=== PATIENT | male | born 1965 | race Caucasian/White ===

== ENCOUNTER 2020-10-18 11:59 | Inpatient (IN) | payer BC, SELFPAY ==
[2020-10-18] VITALS (9 sets, daily range): BP systolic 152–184; BP diastolic 64–90; PULSE 55–85; RESP 14–20; TEMP 36.5–36.9; O2SAT 95–99
--- NOTE | ~2020-10-18 | US_ITS ---
EXAMINATION: US abdomen limited DATE: 10/19/2020 09:26 INDICATION: Right upper quadrant abdominal pain TECHNIQUE: Multiple grayscale and Doppler ultrasound images of the abdomen were obtained. COMPARISON: CT dated 10/18/2020 FINDINGS: The pancreatic head and body are normal in appearance. The pancreatic tail is not visualized. Echoge edwin mild periportal edema. Liver has otherwise normal echogenicity and contour, with a smooth surface . No liver lesion identified. No intrahepatic biliary duct dilation suspected. Portal venous flow was seen in the hepatopetal, normal direction and has normal Doppler waveform. The gallbladder is not di lated but there is prominent edematous gallbladder wall thickening measuring up to 8-9 mm. Large shad owing gallstone at the neck of the gallbladder with layering hypoechoic sludge in the lumen of the ga llbladder. The common bile duct measures up to 5 mm in diameter which is normal. Sonographic Mello s ign was reported as positive by the reversal print inspector. IMPRESSION: 1. Acute cholecystitis with gallstone at the neck of the gallbladder, prominent gallbladder wall thic kening and positive sonographic Mello's sign. Reviewed, dictated and finalized at location B. IMPRESSION: 1. Acute cholecystitis with gallstone at the neck of the gallbladder, prominent gallbladder wall thickening and positive sonographic Mello's sign.
--- NOTE | ~2020-10-18 | CT_ITS ---
EXAMINATION: CT abdomen pelvis w con DATE: 10/18/2020 12:53 INDICATION: Right upper quadrant abdominal pain. TECHNIQUE: Computed tomography (CT) of the abdomen and pelvis was performed with 100 mL Omnipaque 350 intravenous contrast. Automated exposure control and iterative reconstruction technique were employe d. The dose-length product was 358.84 mGy-cm. COMPARISON: None. FINDINGS: The visualized portions of the lung bases demonstrate mild atelectasis. No pleural effusion . The heart size is normal. No pericardial effusion. There is a small sliding hiatal hernia. The live r is normal. The gallbladder is distended with wall thickening and a gallstone in the gallbladder nec k, consistent with acute cholecystitis. The spleen, pancreas, adrenal glands, and kidneys are normal. The prostate is mildly enlarged. There are no dilated loops of bowel. The appendix is normal. There are no pathologically enlarged lymph nodes. There is no free intraperitoneal fluid. There are chronic bilateral L5 pars defects. There is mild thoracolumbar spondylosis. IMPRESSION: 1. Acute cholecystitis. Reviewed, dictated and finalized at location A. IMPRESSION: 1. Acute cholecystitis.
--- NOTE | 2020-10-18 12:10 | ECG_ITS ---
Measurements Intervals [place] Rate: 56 P: 19 NC: 141 QRS: -9 QRSD: 77 T: 26 QT: 413 QTc: 400 Interpretive Statements SINUS BRADYCARDIA BASELINE WANDER- I, II, III, V1-V3 BORDERLINE ECG Electronically Signed On 10-18-2020 14:15:12 CDT by Ernesto Acosta D.O.
--- NOTE | 2020-10-18 12:11 | ED.ABDPAIN ---
HPI - Abdominal Pain General Chief Complaint: Abdominal Pain Stated Complaint: ABD Pain Time Seen by Provider: 10/18/20 12:00 History of Present Illness HPI narrative: 55 yo male w/ h/o DM, htn, CAD presents to the ED c/o abdominal pain. Intermittent severe burning RUQ pain since last night. Radiates to the right flank and back. No exacerbating or alleviating factors. No associated symptoms. Given 75mcg of fentanyl by EMS. Currently pain free. This is a new problem. Related Data Home Medications Medication Instructions Recorded Confirmed aspirin 81 mg PO DAILY 10/18/20 10/18/20 Allergies Allergy/AdvReac Type Severity Reaction Status Date / Time No Known Allergies Allergy Verified 10/18/20 15:11 Review of Systems Review of Systems: All systems reviewed & are unremarkable except as noted in HPI and below Constitutional: Constitutional: Denies chills and Denies fever(s) Eyes: Eyes: Reports no additional eye complaints ENT: Reports system reviewed and no additional complaints, except as documented Cardiovascular: Cardiovascular: Denies chest pain Respiratory: Respiratory: Denies dyspnea Gastrointestinal: Gastrointestinal: Reports abdominal pain, Denies constipation, Denies diarrhea and Denies vomiting Genitourinary: Genitourinary: Reports no additional male genitourinary complaints Musculoskeletal: Musculoskeletal: Reports no additional musculoskeletal complaints Neurologic: Reports system reviewed and no additional complaints, except as documented [facility] Past Medical History Medical History (Updated 10/20/20 @ 15:31 by Андрей Carcamo MD) CAD (coronary artery disease) Essential hypertension Hyperlipidemia Uncontrolled diabetes mellitus Surgical History Surgical History (Updated 10/20/20 @ 12:31 by Yandel Rose DO) History of coronary artery stent placement x2, 2017or 18 Family History Family History Other Cerebrovascular accident Diabetes mellitus Social History Social History Smoking packs per day: 1 Smoking cigarettes per day: 20.0 Years smoked: 36 Smoking pack-years: 36.00 Smoking status: Current every day smoker Tobacco type: cigarettes Second hand tobacco smoke exposure: No Alcohol intake: current Drinks per week: 1 Substance use: never Gender identity (if verbalized by the patient): Male Sexual Orientation (if Verbalized by the Patient): Straight or Heterosexual Spiritual care concerns: No Exam Const: General: healthy appearing, no acute distress and alert Orientation/consciousness: patient oriented x3 HENMT: Head: normal to inspection Neck: Neck: normal visual inspection Resp: Effort & Inspection: normal respiratory effort Auscultation: clear to auscultation bilaterally, no rales, no rhonchi and no wheezes Cardio: Jugular venous distension: no JVD Rate: regular rate Rhythm: regular rhythm Heart sounds: no murmurs GI: Inspection: non-distended GI Palp: Yes Soft to palpation and Yes Tenderness to palpation present (GI) (RUQ, minimal) Skin: General skin exam: normal color Neuro: General: patient oriented x3, moves all extremities, no focal motor deficits and CN's II-XI intact bilaterally Speech: normal speech Extrem: General: normal to inspection and no edema Psych: Appearance: well kempt Affect: normal affect Course Vital Signs Vital signs: Vital Signs Temperature 36.5 C 10/18/20 12:03 Pulse Rate 74 10/18/20 12:03 Respiratory Rate 17 10/18/20 12:03 Blood Pressure 161/90 H 10/18/20 12:03 Pulse Oximetry 99 10/18/20 12:03 Temperature 36.8 C 10/20/20 14:25 Pulse Rate 61 10/20/20 15:25 Respiratory Rate 16 10/20/20 15:25 Blood Pressure 145/72 H 10/20/20 15:25 Pulse Oximetry 92 10/20/20 15:25 MDM - Abdominal Pain MDM Narrative Medical decision making narrative: CT consi
[2020-10-18 12:27] LABS: Basophils Percent Auto 0.3 % (0.2-1.2); Eosinophils Absolute Auto 0.1 K/mm3 (0-0.3); Eosinophils Percent Auto 0.6 % (0-4.4); Hematocrit 46.9 % (42.0-52.0); Hemoglobin 16.4 g/dL (14.0-18.0); Immature Granulocyte Absolute 0.06 K/mm3 (0.00-0.031); Immature Granulocyte Percent A 0.4 % (0-0.5); Lymphocytes Absolute Auto 2.99 K/mm3 (0.9-3.2); Lymphocytes Percent Auto 19.3 % (18.3-44.2); Mean Corpuscular Hemoglobin 31.8 pg (26-34); Mean Corpuscular Volume 90.9 fl (80-100); Mean Platelet Volume 9.5 fl (7.4-10.4); Monocytes Percent Auto 6.5 % (2.6-8.5); Neutrophils Absolute Auto 11.3 K/mm3 (1.3-6.7); Neutrophils Percent Auto 72.9 % (45.5-73.1); Platelet Count Result 264 k/mm3 (150-375); Red Blood Count 5.16 M/mm3 (4.6-6.20); Red Cell Distribution Width 12.4 % (11.5-14.5); White Blood Count 15.5 K/mm3 (4.5-10.0)
[2020-10-18 12:41] LABS: Alanine Aminotransferase 28 U/L (4-50); Albumin Level 4.1 g/dL (3.5-5.1); Alkaline Phosphatase 92 U/L (38-126); Anion Gap 5 mmol/L (8-16); Aspartate Amino Transferase 24 U/L (17-59); Bilirubin,Total 0.5 mg/dL (0.2-1.3); Blood Urea Nitrogen 12 mg/dL (9-20); Calcium 9.1 mg/dL (8.4-10.2); Carbon Dioxide 27 mmol/L (22-30); Chloride 103 mmol/L (98-107); Estimated CRCL calculation 91 ml/min; Estimated Glomerular Filt Rate > 60; Glucose 268 mg/dL (75-110); Lipase 69 U/L (23-300); Potassium 4.4 mmol/L (3.4-5.0); Sodium 135 mmol/L (137-145)
[2020-10-18 12:50] LABS: Troponin I < 0.012 ng/mL (0.000-0.034)
[2020-10-18] MEDS: fentaNYL CITRATE INJ (*CRX) 100 MCG/2 ML VIAL 50 MCG IV PUSH (13:25)
--- NOTE | 2020-10-18 13:49 | PM.CNGS ---
Assessment and Plan Assessment and plan (1) Cholelithiasis and acute cholecystitis with obstruction: Code(s): K80.01 - Calculus of gallbladder with acute cholecystitis with obstruction Status: Acute Assessment and Plan: continues to have abdominal pain. Agree with admission and IV antibiotics. Hopefully his pain will improve and he can be discharged for outpatient laparoscopic cholecystectomy. If not, we will need to proceed with laparoscopic cholecystectomy this admission. I explained this to him and briefly described the procedure of laparoscopic cholecystectomy. P.r.n. analgesics serial labs and abdominal exams as well as IV fluids will also be part of the management. Thank you for asking me to see him in consultation. (2) Uncontrolled diabetes mellitus: Qualifiers: Diabetes mellitus type: type 2 Glycemic state: with hyperglycemia Qualified Code(s): E11.65 - Type 2 diabetes mellitus with hyperglycemia Code(s): E11.65 - Type 2 diabetes mellitus with hyperglycemia Status: Chronic Assessment and Plan: Hemoglobin A1c running 9.8-10. Review of office visits with primary care physician show patient likes to stop medications on his own. Apparently noncompliant. (3) Essential hypertension: Code(s): I10 - Essential (primary) hypertension Status: Chronic History of Present Illness Consult details Consult date: 10/18/20 Reason for consult: abdominal pain Requesting physician: Андрей Carcamo MD Narrative: The patient is a 55-year-old man who was at work at 1:00 a.m. this morning when he developed severe upper abdominal pain. He did not have any nausea vomiting chills or fever. The pain went around to his back. He was at work at this time. 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 He did not have anything to eat at work before this pain started. He did have some rice, cheese and bread about 7:00 p.m.. He has never had pain like this before. He has never had any problems with gallbladder stones before. He denies any family history of gallbladder disease. He left work early but the pain did not get better. He has a history of diabetes coronary disease and has a coronary stent. He called paramedics and was given 75 mcg of fentanyl before coming to the emergency room. This helped but his pain returned in the emergency room. [place] blood [place] [id number] in the ER. Liver enzymes and troponins were normal in the emergency room. Lipase was normal. His blood sugar was 268. Previous outpatient hemoglobin A1c levels were about 10. He had a CT scan of the abdomen and pelvis done a short time ago. It showed a distended gallbladder with wall thickening and a gallstone in the neck of the gallbladder. This was consistent with acute cholecystitis. He has continued to have right upper quadrant pain. He is admitted now and I am seeing the patient in consultation for acute cholecystitis. Review of Systems Review of Systems: All systems reviewed & are unremarkable except as noted in HPI and below Constitutional: Constitutional: Denies body ache(s), Denies chills, Reports difficulty sleeping, Denies fever(s), Denies night sweats and Reports poor appetite Cardiovascular: Cardiovascular: Denies chest pain, Denies diaphoresis, Denies dyspnea and Denies paroxysmal nocturnal dyspnea Respiratory: Respiratory: Denies chest congestion, Denies cough and Denies dyspnea Gastrointestinal: Gastrointestinal: Reports abdominal pain, Denies nausea and Denies vomiting Integumentary/Breasts: Skin/Breast: Denies lesions and Denies rash PMFSH Past Medical History Medical History Essential hypertension Hyperlipidemia Uncontrolled diabetes mellitus Surgical History Surgical History History of coronary artery stent placement Family History Family History (Reviewed
--- NOTE | 2020-10-18 14:55 | ADMGEN ---
This patient, Francisco Apodaca, was admitted to Medical Room 251-. Patient/family oriented to hospital policies and general routines including ID bracelet, bed and alarms, visiting hours, pain management, procedures, bathroom and other care routines, personal items, smoking policy, room service/diet, and visiting hours. Information on how to activate the Rapid Response Team has been discussed. Patient/Family are encouraged to report perceived risks to care and to ask questions if they do not understand what they are told or what they should do.
[2020-10-18] MEDS: LACTATED RINGERS 1,000 ML 100 ML IV CONT (15:41)
[2020-10-18] MEDS: MORPHINE SULFATE (*CRX) 4 MG/ML INJ IV PUSH ×2 (15:58→23:42)
--- NOTE | 2020-10-18 16:35 | PM.IMHP ---
H&P: HPI History of Present Illness Date/Time: 10/18/20 16:35 Chief Complaint: right upper quadrant pain Narrative: history was obtained directly from the patient and from the patient's son at bedside. 55-year-old gentleman was at work around 2:00 a.m. this morning when he had sudden onset of moderate to severe right upper quadrant pain radiating to the right flank and CVA region. The pain gradually worsened so that he was unable to stay at work and therefore departed early. It persisted and became so severe that he relented and presented to the emergency department. Only IV narcotics ameliorated the pain. His discomfort is currently mild. He denied fevers chills sweats nausea vomiting or diarrhea. He denied similar pain in the past. Denied change in diet or weight. Denied change in bowel or bladder function. Denied bleeding from bowel or bladder. Review of Systems Review of Systems: All systems reviewed & are unremarkable except as noted in HPI and below PMFSH Past Medical History Medical History (Updated 10/18/20 @ 16:36 by Tez Lainez MD) CAD (coronary artery disease) Essential hypertension Hyperlipidemia Uncontrolled diabetes mellitus Surgical History Surgical History History of coronary artery stent placement Family History Family History Other Cerebrovascular accident Diabetes mellitus Social History Social History Smoking packs per day: 1 Smoking cigarettes per day: 20.0 Years smoked: 36 Smoking pack-years: 36.00 Smoking status: Current every day smoker Tobacco type: cigarettes Second hand tobacco smoke exposure: No Alcohol intake: current Drinks per week: 1 Substance use: never Gender identity (if verbalized by the patient): Male Sexual Orientation (if Verbalized by the Patient): Straight or Heterosexual Spiritual care concerns: No Meds Home Medications and Allergies Home Medications Medication Instructions Recorded Confirmed Type rosuvastatin 40 mg tablet 40 mg PO DAILY #30 tablet 07/21/20 10/18/20 Rx lisinopril 5 mg tablet 5 mg PO DAILY #90 tablet 08/31/20 10/18/20 Rx metoprolol tartrate 25 mg tablet 25 mg PO BID #60 tablet 09/27/20 10/18/20 Rx aspirin 81 mg PO DAILY 10/18/20 10/18/20 History Allergies Allergy/AdvReac Type Severity Reaction Status Date / Time No Known Allergies Allergy Verified 10/18/20 15:11 Vital Signs Vital Signs - 24 hr 10/18/20 12:03 10/18/20 13:27 10/18/20 13:46 Temperature 97.7 F Pulse Rate 74 60 60 Respiratory Rate 17 20 20 Blood Pressure 161/90 H 171/89 H 171/89 H Pulse Oximetry 99 97 97 10/18/20 14:42 10/18/20 15:43 Temperature 98.5 F Pulse Rate 55 L 56 L Respiratory Rate 20 16 Blood Pressure 184/86 H 164/71 H Pulse Oximetry 95 97 Exam Narrative: Exam Narrative: HEENT: PERRL, sclerae nonicteric, pharyngeal mucosa pink and intact NECK: No JVD, adenopathy, thyromegaly, or bruits CHEST: Clear to auscultation. Normal effort. HEART: NL S1/S2, regular, no murmur ABDOMEN: BS+, soft, TENDER RUQ WITH GUARDING BUT NO REBOUND, no mass, no bruits EXTREMITIES: No cyanosis, edema, or clubbing NEUROLOGIC: CN intact and symmetric to inspection. MUSCULOSKELETAL: Tone and strength symmetric. PSYCH: Alert. Oriented to person, place, and time. H&P: Results Labs Labs: Short CBC 10/18/20 Range/Units 12:21 WBC 15.5 H (4.5-10.0) K/mm3 Hgb 16.4 (14.0-18.0) g/dL Hct 46.9 (42.0-52.0) % Plt Count 264 (150-375) k/mm3 [facility] 10/18/20 12:21 Sodium 135 L Potassium 4.4 Chloride 103 Carbon Dioxide 27 BUN 12 Creatinine 0.70 Glucose 268 H Calcium 9.1 Cardiac Enzymes 10/18/20 Range/Units 12:21 Troponin I < 0.012 (0.000-0.034) ng/mL Liver Function 10/18/20 Range/Units 12:21 Total Bilirubin
[2020-10-18] MEDS: METOPROLOL TARTRATE INJ 5 MG/5 ML VIAL 2.5 MG IV PUSH ×2 (18:00→23:43)
[2020-10-18] MEDS: INSULIN ASPART (*BKC) 100 UNITS/ML SUB-Q ×2 (18:14→23:46)
[2020-10-18 18:40] LABS: Glucose Point of Care 218 (65-105)
[2020-10-18] MEDS: INSULIN GLARGINE (*BKC) 100 UNITS/ML 7 UNITS SUB-Q (20:33)
[2020-10-18 20:52] LABS: Glucose Point of Care 226 (65-105)
[2020-10-18 23:51] LABS: Glucose Point of Care 217 (65-105)
[2020-10-19] MEDS: LACTATED RINGERS 1,000 ML 100 ML IV CONT ×3 (02:42→23:51)
[2020-10-19 05:41] VITALS: BP 142/68; PULSE 76; RESP 16; TEMP 37.2; O2SAT 95
[2020-10-19 06:14] VITALS: PULSE 84
[2020-10-19] MEDS: METOPROLOL TARTRATE INJ 5 MG/5 ML VIAL 2.5 MG IV PUSH (06:14)
[2020-10-19 07:48] LABS: Hematocrit 44.7 % (42.0-52.0); Hemoglobin 15.9 g/dL (14.0-18.0); Mean Corpuscular HGB Conc 35.6 g/dl (32-36); Mean Corpuscular Hemoglobin 31.6 pg (26-34); Mean Corpuscular Volume 88.9 fl (80-100); Mean Platelet Volume 9.7 fl (7.4-10.4); Platelet Count Result 282 k/mm3 (150-375); Red Blood Count 5.03 M/mm3 (4.6-6.20); Red Cell Distribution Width 12.4 % (11.5-14.5)
[2020-10-19 08:01] LABS: Magnesium 1.6 mg/dL (1.6-2.3)
[2020-10-19 08:06] LABS: Anion Gap 6 mmol/L (8-16); Blood Urea Nitrogen 9 mg/dL (9-20); Calcium 8.9 mg/dL (8.4-10.2); Carbon Dioxide 27 mmol/L (22-30); Chloride 102 mmol/L (98-107); Estimated CRCL calculation 96 ml/min; Estimated Glomerular Filt Rate > 60; Glucose 220 mg/dL (75-110); Potassium 3.9 mmol/L (3.4-5.0); Sodium 135 mmol/L (137-145)
[2020-10-19 08:10] LABS: Glucose Point of Care 196 (65-105)
--- NOTE | 2020-10-19 08:14 | WPDANESEPPF ---
Anes - Initial Pre Proc Eval Procedure: Operation Date: 10/20/20 13:30 Proposed Procedures p Laparoscopic Cholecystectomy - Sumit Ashraf MD Date/Time: 10/19/20 08:14 Surgeon: Kiana Valero PA-C Pre Op Diagnosis: Acute Cholecystitis Patient Data Age: 55 Gender: M Height: 1.78 m Weight: 68 kg Last Vital Signs Temp 37.2 C 10/19/20 05:41 Pulse 84 10/19/20 06:14 Resp 16 10/19/20 05:41 BP 142/68 H 10/19/20 05:41 Pulse Ox 95 10/19/20 05:41 Allergies Allergy/AdvReac Type Severity Reaction Status Date / Time No Known Allergies Allergy Verified 10/18/20 15:11 Home Medications Medication Instructions Recorded Confirmed Type rosuvastatin 40 mg tablet 40 mg PO DAILY #30 tablet 07/21/20 10/18/20 Rx lisinopril 5 mg tablet 5 mg PO DAILY #90 tablet 08/31/20 10/18/20 Rx metoprolol tartrate 25 mg tablet 25 mg PO BID #60 tablet 09/27/20 10/18/20 Rx aspirin 81 mg PO DAILY 10/18/20 10/18/20 History Laboratory Tests 10/18/20 10/18/20 10/18/20 12:21 12:21 17:57 WBC 15.5 K/mm3 H K/mm3 (4.5-10.0) RBC 5.16 M/mm3 M/mm3 (4.6-6.20) Hgb 16.4 g/dL g/dL (14.0-18.0) Hct 46.9 % % (42.0-52.0) MCV 90.9 fl fl (80-100) MCH 31.8 pg pg (26-34) MCHC 35.0 g/dl g/dl (32-36) RDW 12.4 % % (11.5-14.5) Plt Count 264 k/mm3 k/mm3 (150-375) MPV 9.5 fl fl (7.4-10.4) Immature Gran % (Auto) 0.4 % % (0-0.5) Neut % (Auto) 72.9 % % (45.5-73.1) Lymph % (Auto) 19.3 % % (18.3-44.2) [place] % (Auto) 6.5 % % (2.6-8.5) Eos % (Auto) 0.6 % % (0-4.4) Baso % (Auto) 0.3 % % (0.2-1.2) Lymph # (Auto) 2.99 K/mm3 K/mm3 (0.9-3.2) [place] # (Auto) 1.0 K/mm3 H K/mm3 (0.1-0.6) Eos # (Auto) 0.1 K/mm3 K/mm3 (0-0.3) Baso # (Auto) 0.0 K/mm3 K/mm3 (0.0-0.1) Abs Immat Gran (auto) 0.06 K/mm3 H K/mm3 (0.00-0.031) Absolute Neuts (auto) 11.3 K/mm3 H K/mm3 (1.3-6.7) Absolute Nucleated RBC 0.0 K/mm3 K/mm3 (0.0-0.012) Nucleated RBC % 0.0 % % (0.0-0.2) Sodium 135 mmol/L L mmol/L (137-145) Potassium 4.4 mmol/L mmol/L (3.4-5.0) Chloride 103 mmol/L mmol/L (98-107) Carbon Dioxide 27 mmol/L mmol/L (22-30) Anion Gap 5 mmol/L L mmol/L (8-16) BUN 12 mg/dL mg/dL (9-20) Creatinine 0.70 mg/dL mg/dL (0.7-1.3) Estim Creat Clear Calc 91 ml/min ml/min Estimated GFR > 60 (59 - ) Glucose 268 mg/dL H mg/dL (75-110) POC Capillary Glucose 218 mg/dl H mg/dl (65-105) Hemoglobin A1c Calcium 9.1 mg/dL mg/dL (8.4-10.2) Magnesium Total Bilirubin 0.5 mg/dL mg/dL (0.2-1.3) AST 24 U/L U/L (17-59) ALT 28 U/L U/L (4-50) Alkaline Phosphatase 92 U/L U/L (38-126) Troponin I < 0.012 ng/mL ng/mL (0.000-0.034) Total Protein 7.0 g/dL g/dL (6.3-8.2) Albumin 4.1 g/dL g/dL (3.5-5.1) Lipase 69 U/L U/L (23-300) 10/18/20 10/18/20 10/19/20 20:30 23:45 06:09 WBC RBC Hgb Hct MCV MCH MCHC RDW Plt Count MPV Immature Gran % (Auto) Neut % (Auto) Lymph % (Auto) [place] % (Auto) Eos % (Auto) Baso % (Auto) Lymph # (Auto) [place] # (Auto) Eos # (Auto) Baso # (Auto) Abs Immat Gran (auto) Absolute Neuts (auto) Absolute Nucleated RBC Nucleated RBC % Sodium Potassium Chloride Carbon Dioxide Anion Gap BUN Creati
[2020-10-19 08:17] LABS: Hemoglobin A1C 9.9 % (<5.7)
--- NOTE | 2020-10-19 08:23 | PM.PNGS ---
Progress Note: A&P Assessment and Plan (1) Cholelithiasis and acute cholecystitis with obstruction: Code(s): K80.01 - Calculus of gallbladder with acute cholecystitis with obstruction Status: Acute Assessment and Plan: patient somewhat improved after IV antibiotics and analgesics but still very tender right upper quadrant with pain. I am going to get an ultrasound of the right upper quadrant today. We will continue current treatment. If not demonstrably better tomorrow, we will proceed with laparoscopic cholecystectomy tomorrow afternoon. I discussed the procedure of laparoscopic cholecystectomy with the patient again this morning. The procedure the risks the benefits have been discussed. He is agreeable to proceeding as planned above. (2) Uncontrolled diabetes mellitus: Qualifiers: Diabetes mellitus type: type 2 Glycemic state: with hyperglycemia Qualified Code(s): E11.65 - Type 2 diabetes mellitus with hyperglycemia Code(s): E11.65 - Type 2 diabetes mellitus with hyperglycemia Status: Chronic (3) Essential hypertension: Code(s): I10 - Essential (primary) hypertension Status: Chronic (4) CAD (coronary artery disease): Code(s): I25.10 - Atherosclerotic heart disease of [place] coronary artery without angina pectoris Status: Chronic Subjective Subjective Date/Time Seen: 10/19/20 08:23 Patient reports: feels better, pain is less ( But still having intermittent severe right upper quadrant pain) and afebrile Review of Systems Review of Systems: All systems reviewed & are unremarkable except as noted in HPI and below Constitutional: Constitutional: Denies headache(s) Cardiovascular: Cardiovascular: Denies chest pain and Denies dyspnea Respiratory: Respiratory: Denies cough and Denies dyspnea Gastrointestinal: Gastrointestinal: Reports as per HPI Neurologic: Denies confusion and Denies headache(s) Exam Const: General: comfortable and no acute distress; No confusion Orientation/consciousness: patient oriented x3 and No confusion GI: Inspection: normal to inspection and non-distended GI Palp: Yes Soft to palpation, Yes Tenderness to palpation present (GI) ( still very tender right upper quadrant), No Guarding due to palpation present (GI), No Palpable mass present and No Rebound tenderness present Auscultation: Hypoactive bowel sounds present Neuro: General: patient oriented x3, no focal motor deficits and No confusion Extrem: General: no calf tenderness and no edema Psych: Affect: normal affect Insight: Good insight present (Psych) Judgement: Good judgement present (Psych) Objective Data Vital Signs Vital Signs: Vital Signs - 24 hr 10/18/20 12:03 10/18/20 13:27 10/18/20 13:46 Temperature 36.5 C Pulse Rate 74 60 60 Respiratory Rate 17 20 20 Blood Pressure 161/90 H 171/89 H 171/89 H Pulse Oximetry 99 97 97 10/18/20 14:42 10/18/20 15:43 10/18/20 18:00 Temperature 36.9 C Pulse Rate 55 L 56 L 56 L Respiratory Rate 20 16 Blood Pressure 184/86 H 164/71 H Pulse Oximetry 95 97 10/18/20 20:00 10/18/20 20:46 10/18/20 23:43 Temperature 36.9 C Pulse Rate 58 L 58 L 85 Respiratory Rate 14 14 Blood Pressure 152/64 H Pulse Oximetry 97 97 10/19/20 05:41 10/19/20 06:14 Temperature 37.2 C Pulse Rate 76 84 Respiratory Rate 16 Blood Pressure 142/68 H Pulse Oximetry 95 Intake/Output Intake/Output: Intake & Output 10/16/20 10/17/20 10/18/20 10/19/20 22:59 22:59 23:59 23:59 Intake Total 1100 Balance 1100 Meds/Results Medications: Active Medications Generic Name Dose Route Start Last Admin Trade Name Freq PRN Reason Stop Dose Admin Dextrose 12.5 gm 10/18/20 17:08 Dextrose 50% 25 Gm/50 Ml Syringe IV PUSH PRN PRN Hypoglycemia Protocol Glucagon 1 mg 10/18/20 17:08 Glucagon For Inj 1 Mg Vial IM PRN PRN Hypoglycemia Protocol Piperacillin/Tazobactam/D
[2020-10-19 09:14] VITALS: PULSE 64; RESP 16; O2SAT 94
[2020-10-19] MEDS: CHLORHEXIDINE GLUCONATE 4% SOL 120 ML BTL 1 APPLIC TOPICAL (10:22)
--- NOTE | 2020-10-19 10:31 | PM.IMPN ---
Progress Note: A&P Assessment and Plan (1) Cholelithiasis and acute cholecystitis with obstruction: Code(s): K80.01 - Calculus of gallbladder with acute cholecystitis with obstruction Status: Acute Assessment and Plan: He presented with severe RUQ pain for <[address] abd/pelvis findings consistent with acute cholecystitis. Abdominal US demonstrates edematous gallbladder with wall thickening measuring up to 8-9 mm and large shadowing gallstone at the neck of the gallbladder with sludge. Lipase normal and LFTs normal on admission. WBC has increased to 20,000. He is afebrile. Pain is much better today. 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 He is medically stable for laparoscopic cholecystectomy under general anesthesia. ASA held in anticipation of surgery. Resume post-op. Continue metoprolol, lisinopril and rosuvastatin (3) Uncontrolled diabetes mellitus: Qualifiers: Diabetes mellitus type: type 2 Glycemic state: with hyperglycemia Qualified Code(s): E11.65 - Type 2 diabetes mellitus with hyperglycemia Code(s): E11.65 - Type 2 diabetes mellitus with hyperglycemia Status: Chronic Assessment and Plan: Hemoglobin A1c 9.9 10/19/20. Most recent blood sugar 196. Patient is not compliant with medication and perhaps with diet. He was supposed to be taking metformin but he is not taking this. Low-dose basal lantus initiated while inpatient Continue ACHS glucose monitoring, sliding scale insulin, and hypoglycemia protocol He needs to resume metformin at discharge and follow-up with his PCP Education provided regarding risks of uncontrolled diabetes (4) Essential hypertension: Code(s): I10 - Essential (primary) hypertension Status: Chronic Assessment and Plan: Blood pressure is elevated, likely due to pain. Most recent BP 142/68. Continue metoprolol and lisinopril Monitor BP and adjust treatment as necessary (5) Corns and callus: Code(s): L84 - Corns and callosities Status: Acute Assessment and Plan: He has painful corn on right heel and bilateral calluses. Podiatry consulted with input appreciated Subjective Date/time seen: 10/19/20 10:31 Mr. Apodaca is a 55 y.o. male with PMH significant for hypertension, CAD, hyperlipidemia, and uncontrolled diabetes mellitus due to non-compliance with recommended regimen who is seen in follow-up for acute cholecystitis. He is doing better today. His pain has improved and he states that it is currently 2-3/10 at the RUQ. He denies radiation. He is lying in bed comfortably. He has no subjective fever or chills. He has no chest pain, shortness of breath, or cough. He is not having any nausea or vomiting. He endorses discomfort at his right heel due to calluses for 2-3 months. He is still able to walk/bear weight with the foot. He denies warmth or erythema. Review of Systems Review of Systems: All systems reviewed & are unremarkable except as noted in HPI and below Exam Narrative: Exam Narrative: General: Very pleasant, well-developed, and well-nourished 55 y.o. male lying semi-recumbent in bed in no acute distress. HEENMT: Normocephalic and atraumatic. Sclera anicteric. EOMI. Oral mucosa tacky. Neck: Supple. Cardiac: Regular rate and rhythm. S1 and S2 normal. Lungs: Lungs are clear to ausc
[2020-10-19 12:00] LABS: Glucose Point of Care 212 (65-105)
[2020-10-19] MEDS: lisinopriL 5 MG TABLET PO (12:18)
[2020-10-19] MEDS: INSULIN ASPART (*BKC) 100 UNITS/ML SUB-Q (12:21)
--- NOTE | 2020-10-19 12:47 | WPDCN ---
Assessment and Plan Additional Plan 1. Verruca Plantaris to the inferior right heel - I will treat the patient as an outpatient for this papillomatous lesion. He has no bacterial signs of infection. 2. Diabetic without peripheral neuropathy/angiopathy- I will monitor the patient as an outpatient for routine diabetic foot care. HPI Data of Consult Date/Time: 10/19/20 12:47 Requesting Physician: Kiana Valero PA-C Primary Care Provider: Sreedhar Garcia MD Consult Narrative Narrative: Francisco Apodaca is a 55 year old male complaining of a painful skin lesion to the bottom of the right heel. It became symptomatic 3 months ago. 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 The patient is diabetic denies a history of diabetic ulcers, unsure if his diabetes is well controlled. Review of Systems Review of Systems: All systems reviewed & are unremarkable except as noted in HPI and below Gastrointestinal: Gastrointestinal: Reports abdominal pain Musculoskeletal: Comments: Pain to the right heel plantarly. [facility] Past Medical History Medical History (Updated 10/19/20 @ 11:00 by Kiana Valero PA-C) CAD (coronary artery disease) Essential hypertension Hyperlipidemia Uncontrolled diabetes mellitus Surgical History Surgical History History of coronary artery stent placement Family History Family History Other Cerebrovascular accident Diabetes mellitus Social History Social History Smoking packs per day: 1 Smoking cigarettes per day: 20.0 Years smoked: 36 Smoking pack-years: 36.00 Smoking status: Current every day smoker Tobacco type: cigarettes Second hand tobacco smoke exposure: No Alcohol intake: current Drinks per week: 1 Substance use: never Gender identity (if verbalized by the patient): Male Sexual Orientation (if Verbalized by the Patient): Straight or Heterosexual Spiritual care concerns: No Meds Home Medications and Allergies Home Medications Medication Instructions Recorded Confirmed Type rosuvastatin 40 mg tablet 40 mg PO DAILY #30 tablet 07/21/20 10/18/20 Rx lisinopril 5 mg tablet 5 mg PO DAILY #90 tablet 08/31/20 10/18/20 Rx metoprolol tartrate 25 mg tablet 25 mg PO BID #60 tablet 09/27/20 10/18/20 Rx aspirin 81 mg PO DAILY 10/18/20 10/18/20 History Allergies Allergy/AdvReac Type Severity Reaction Status Date / Time No Known Allergies Allergy Verified 10/18/20 15:11 Vital Signs Vital Signs - 24 hr 10/18/20 13:27 10/18/20 13:46 10/18/20 14:42 Temperature Pulse Rate 60 60 55 L Respiratory Rate 20 20 20 Blood Pressure 171/89 H 171/89 H 184/86 H Pulse Oximetry 97 97 95 10/18/20 15:43 10/18/20 18:00 10/18/20 20:00 Temperature 36.9 C Pulse Rate 56 L 56 L 58 L Respiratory Rate 16 14 Blood Pressure 164/71 H Pulse Oximetry 97 97 10/18/20 20:46 10/18/20 23:43 10/19/20 05:41 Temperature 36.9 C 37.2 C Pulse Rate 58 L 85 76 Respiratory Rate 14 16 Blood Pressure 152/64 H 142/68 H Pulse Oximetry 97 95 10/19/20 06:14 10/19/20 09:14 Temperature Pulse Rate 84 64 Respiratory Rate 16 Blood Pressure Pulse Oximetry 94 Exam Extrem: Ankle/foot/toe images: 1. Painful hyperkeratotic lesion present to the inferior calcaneus right footwith loss of skin lines and pain with deep palpation. No discontinuity of the skin present. No bacterial signs of infection. Other: Palpable pedal pulses bilaterally. Sensation is intact to digits 1-5 bilaterally per [facility] Diamante Monofilament. Results Labs CBC & Chem 7: 10/19/20 07:31 10/19/20 07:31 Labs: Short CBC 10/19/20 Range/Units 07:31 WBC 20.0 H (4.5-10.0) K/mm3 Hgb 15.9 (14.0-18.0) g/dL Hct 44.7 (42.0-52.0) % Pl
[2020-10-19 14:00] VITALS: BP 144/67; PULSE 85; RESP 16; TEMP 37.6; O2SAT 94
[2020-10-19 18:04] LABS: Glucose Point of Care 181 (65-105)
[2020-10-19 20:17] VITALS: PULSE 97
[2020-10-19] MEDS: INSULIN GLARGINE (*BKC) 100 UNITS/ML 7 UNITS SUB-Q (20:17)
[2020-10-19] MEDS: METOPROLOL TARTRATE 25 MG TABLET PO (20:17)
[2020-10-19] MEDS: ENOXAPARIN 40 MG/0.4 ML SYRINGE SUB-Q (20:18)
[2020-10-19 21:08] LABS: Glucose Point of Care 212 (65-105)
[2020-10-19 22:00] VITALS: BP 140/60; PULSE 97; RESP 18; TEMP 36.7; O2SAT 96
[2020-10-20] VITALS (12 sets, daily range): BP systolic 115–153; BP diastolic 61–72; PULSE 54–70; RESP 14–20; TEMP 36.3–37.2; O2SAT 92–99
[2020-10-20 00:01] LABS: Glucose Point of Care 186 (65-105)
[2020-10-20 05:36] LABS: Hematocrit 43.6 % (42.0-52.0); Hemoglobin 15.2 g/dL (14.0-18.0); Mean Corpuscular HGB Conc 34.9 g/dl (32-36); Mean Corpuscular Hemoglobin 31.5 pg (26-34); Mean Corpuscular Volume 90.5 fl (80-100); Mean Platelet Volume 9.7 fl (7.4-10.4); Platelet Count Result 240 k/mm3 (150-375); Red Blood Count 4.82 M/mm3 (4.6-6.20); Red Cell Distribution Width 12.6 % (11.5-14.5); White Blood Count 17.7 K/mm3 (4.5-10.0)
[2020-10-20 05:43] LABS: Glucose Point of Care 163 (65-105)
[2020-10-20 05:49] LABS: Alanine Aminotransferase 17 U/L (4-50); Albumin Level 3.8 g/dL (3.5-5.1); Alkaline Phosphatase 67 U/L (38-126); Anion Gap 6 mmol/L (8-16); Aspartate Amino Transferase 16 U/L (17-59); Bilirubin,Total 0.8 mg/dL (0.2-1.3); Blood Urea Nitrogen 10 mg/dL (9-20); Calcium 8.7 mg/dL (8.4-10.2); Carbon Dioxide 27 mmol/L (22-30); Chloride 102 mmol/L (98-107); Estimated CRCL calculation 96 ml/min; Estimated Glomerular Filt Rate > 60; Glucose 165 mg/dL (75-110); Lipase 48 U/L (23-300); Potassium 3.7 mmol/L (3.4-5.0); Sodium 135 mmol/L (137-145)
[2020-10-20] MEDS: METOPROLOL TARTRATE 25 MG TABLET PO ×2 (08:00→21:09)
[2020-10-20] MEDS: lisinopriL 5 MG TABLET PO (08:00)
[2020-10-20] MEDS: CHLORHEXIDINE GLUCONATE 4% SOL 120 ML BTL 1 APPLIC TOPICAL (08:57)
--- NOTE | 2020-10-20 09:25 | PM.PNGS ---
Progress Note: A&P Assessment and Plan (1) Cholelithiasis and acute cholecystitis with obstruction: Code(s): K80.01 - Calculus of gallbladder with acute cholecystitis with obstruction Status: Acute Assessment and Plan: Even though pain is better, patient still very tender over GB with guarding and WBC continues to rise. U/S c/w acute cholecystitis as well. Will proceed with lap kareen today. The procedure was discussed in detail including potential risks and benefits. The possibility of conversion to open surgery, bleeding, infection, bile leak, additional procedures, and return to surgery was discussed. All questions were answered. The patient agrees to go ahead. (2) Uncontrolled diabetes mellitus: Qualifiers: Diabetes mellitus type: type 2 Glycemic state: with hyperglycemia Qualified Code(s): E11.65 - Type 2 diabetes mellitus with hyperglycemia Code(s): E11.65 - Type 2 diabetes mellitus with hyperglycemia Status: Chronic (3) Essential hypertension: Code(s): I10 - Essential (primary) hypertension Status: Chronic (4) CAD (coronary artery disease): Code(s): I25.10 - Atherosclerotic heart disease of [place] coronary artery without angina pectoris Status: Chronic Subjective Subjective Date/Time Seen: 10/20/20 09:25 Patient reports: feels better, pain is less and afebrile Review of Systems Review of Systems: All systems reviewed & are unremarkable except as noted in HPI and below Constitutional: Constitutional: Denies headache(s) Cardiovascular: Cardiovascular: Denies chest pain and Denies dyspnea Respiratory: Respiratory: Denies cough and Denies dyspnea Gastrointestinal: Gastrointestinal: Reports as per HPI, Reports abdominal pain, Reports bloating and Reports early satiety Neurologic: Denies confusion and Denies headache(s) Exam Const: General: comfortable and no acute distress; No confusion Orientation/consciousness: patient oriented x3 and No confusion GI: Inspection: normal to inspection and non-distended GI Palp: Yes Soft to palpation, Yes Tenderness to palpation present (GI) (still very tender RUQ), Yes Guarding due to palpation present (GI) and No Rebound tenderness present Auscultation: normal bowel sounds Neuro: General: patient oriented x3, no focal motor deficits and No confusion Extrem: General: no calf tenderness and no edema Psych: Affect: normal affect Insight: Good insight present (Psych) Judgement: Good judgement present (Psych) Objective Data Vital Signs Vital Signs: Vital Signs - 24 hr 10/19/20 14:00 10/19/20 20:17 10/19/20 22:00 Temperature 37.6 C H 36.7 C Pulse Rate 85 97 97 Respiratory Rate 16 18 Blood Pressure 144/67 H 140/60 Pulse Oximetry 94 96 10/20/20 06:00 10/20/20 08:00 Temperature 36.6 C Pulse Rate 70 69 Respiratory Rate 20 Blood Pressure 126/61 Pulse Oximetry 98 Intake/Output Intake/Output: Intake & Output 10/17/20 10/18/20 10/19/20 10/20/20 22:59 23:59 23:59 23:59 Intake Total 3250 529 Balance 3250 529 Meds/Results Medications: Active Medications Generic Name Dose Route Start Last Admin Trade Name Freq PRN Reason Stop Dose Admin Dextrose 12.5 gm 10/18/20 17:08 Dextrose 50% 25 Gm/50 Ml Syringe IV PUSH PRN PRN Hypoglycemia Protocol Enoxaparin Sodium 40 mg 10/19/20 21:00 10/19/20 20:18 Enoxaparin 40 Mg/0.4 Ml Syringe SUB-Q 40 mg HS ARCELIA Administration Glucagon 1 mg 10/18/20 17:08 Glucagon For Inj 1 Mg Vial IM PRN PRN Hypoglycemia Protocol Piperacillin/Tazobactam/Dextrose 3.375 gm in 50 mls @ 100 mls/hr 10/18/20 19:00 10/20/20 05:59 Zosyn 3.375 Gm/D5w 50ml Pm IVPB Infused Q6HR ARCELIA Infusion Lactated Ringer's 1,000 mls @ 100 mls/hr 10/18/20 13:35 10/20/20 05:32 Lr - Lactated Ringers Iv IV CONT 100 mls/hr .Q10H ARCELIA Infusion Dextrose 1,000 mls @ 100 mls/hr 10/18/20 17:08 Dextrose 5% 1,0
--- NOTE | 2020-10-20 10:39 | PM.IMPN ---
Progress Note: A&P Assessment and Plan (1) Cholelithiasis and acute cholecystitis with obstruction: Code(s): K80.01 - Calculus of gallbladder with acute cholecystitis with obstruction Status: Acute Assessment and Plan: He presented with severe RUQ pain and CT abd/pelvis findings consistent with acute cholecystitis. Abdominal US demonstrates edematous gallbladder with wall thickening measuring up to 8-9 mm and large shadowing gallstone at the neck of the gallbladder with sludge. Lipase normal and LFTs normal on admission. He is afebrile. Leukocytosis slowly improving. Pain improved today but still having RUQ tenderness. General surgery is following and input is appreciated. Planning for laparoscopically cholecystectomy today with Dr. Ashraf. Continue IV Zosyn (initiated 10/18) Supportive care with analgesics and antiemetics as needed NPO diet for surgery. Advance diet per general surgery post-operatively Continue IV fluids - LR at 100 ml/hr (2) CAD (coronary artery disease): Code(s): I25.10 - Atherosclerotic heart disease of [place] coronary artery without angina pectoris Status: Chronic Assessment and Plan: The patient is able to climb ladders and stair cases and utilizes power tools at his employment without symptoms of chest pain or dyspnea, demonstrating >6 METS. He is medically stable for laparoscopic cholecystectomy under general anesthesia. ASA held in anticipation of surgery. Resume post-operatively. Continue metoprolol, lisinopril and rosuvastatin (3) Uncontrolled diabetes mellitus: Qualifiers: Diabetes mellitus type: type 2 Glycemic state: with hyperglycemia Qualified Code(s): E11.65 - Type 2 diabetes mellitus with hyperglycemia Code(s): E11.65 - Type 2 diabetes mellitus with hyperglycemia Status: Chronic Assessment and Plan: Hemoglobin A1c 9.9 10/19/20. Most recent blood sugar 163. Patient is not compliant with medication and perhaps with diet. He was supposed to be taking metformin but he is not taking this. Low-dose basal lantus initiated while inpatient Continue ACHS glucose monitoring, sliding scale insulin, and hypoglycemia protocol He needs to resume metformin at discharge and follow-up with his PCP Education provided regarding risks of uncontrolled diabetes (4) Essential hypertension: Code(s): I10 - Essential (primary) hypertension Status: Chronic Assessment and Plan: Blood pressureelevated initially, likely due to pain. Most recent BP 140/60. Continue metoprolol and lisinopril Monitor BP and adjust treatment as necessary (5) Corns and callus: Code(s): L84 - Corns and callosities Status: Acute Assessment and Plan: He has painful corn on right heel and bilateral calluses. He was seen by national business director Dr. Jones who felt this was a papillomatous lesion and he will follow him as an outpatient for treatment. Refer to podiatry upon discharge May benefit from post-op shoe prior to discharge for comfort. Subjective Date/time seen: 10/20/20 10:39 Interval history: Date of service: 10/20/2020 Francisco Apodaca is a 55 y.o. male with PMH significant for hypertension, CAD, hyperlipidemia, and uncontrolled diabetes mellitus due to non-compliance with recommended regimen who is seen in follow-up for acute cholecystitis. Is feeling pretty well today. He is only endorsing mild discomfort in the right upper quadrant and he rates his pain as 1/10. He denies nausea or vomiting. He has been NPO today and has not eaten anything. No shortness of breath or chest pain. No headache or body aches. He has no additional concerns. He is comfortable with proceeding with surgery today. He complains of pain in his right heel and reports difficulty weight bearing. He has been walking on the sides of his feet to avoid direct pressure. Please note: patient is a non-bel[place]ski Micronesian speaker but declined use of interpr
[2020-10-20 11:49] LABS: Glucose Point of Care 183 (65-105)
--- NOTE | 2020-10-20 11:57 | PC.NURSE ---
To OR per doriser, IV 18 RAC. Report given to Suzette MCINTYRE.
[2020-10-20] MEDS: LACTATED RINGERS 1,000 ML 30 ML IV CONT (12:00)
--- NOTE | 2020-10-20 12:35 | WPDHPUPDATE1 ---
History and Physical Update Update Date/Time: 10/20/20 12:35 History and Physical has been reviewed, including an updated exam of the patient. There are NO changes in the patient's condition. Risks, benefits, and alternatives have been discussed and questions answered. Patient agrees to proceed with procedure.
[2020-10-20] MEDS: BUPIVACAINE/EPINEPHRINE 0.5% 30 ML VIAL INFILTRATE (13:08)
--- NOTE | 2020-10-20 14:29 | PM.PROC ---
Procedure Note - Detailed Date of procedure: 10/20/20 Pre-op diagnosis: Acute Cholecystitis Cholelithiasis with acute cholecystitis and cystic duct obstruction (hydrops) Post-op diagnosis: same Procedure performed: Laparoscopic cholecystectomy Description of procedure: The patient was taken to surgery and induced into general anesthesia. The abdomen was prepped and draped. Trocars were placed in the usual fashion using 0.5% Marcaine with epinephrine and applied Medical optical trocars. 5 mm camera was used. The gallbladder was severely inflamed. It was edematous, distended, partially intrahepatic with patches of gangrenous change on the wall. I went ahead and decompressed the gallbladder with a laparoscopic aspirator. Clear bile consistent with hydrops came forth. The gallbladder decompressed well. The gallbladder was grasped near the fundus and retracted anterosuperiorly. There was a large stone in the neck of the gallbladder. Placing traction on the cholecystohepatic triangle was difficult due to the large stone and the accompanying inflammation. Eventually the infundibulum of the gallbladder was able to be grasped. Traction was then placed on the infundibulum and dissection was started. The inflammation was very severe and some cautery was used. Most of the dissection was done bluntly with the suction. This allowed us to suction away the accompanying bleeding from the acute inflammation. Eventually the cystic duct and cystic artery were dissected. The gallbladder was dissected away from the liver on its lower 3rd so that critical view was achieved. I securely clipped and divided the cystic artery. We then turned our attention to dissecting the gallbladder off the liver. A combination of cautery and blunt dissection was used. However the gallbladder was so adherent to the liver that some raw liver surface was left as we dissected the gallbladder free. A few openings into the gallbladder particularly near the fundus while we were dissecting it off the liver occurred as well. No stones spilled. This of course did have some additional oozing of blood. Eventually the gallbladder was completely removed. We then placed the gallbladder in an Endo-Catch bag and retrieved it through the 10 11 epigastric trocar site. The trocar site had to be slightly enlarged to accommodate the gallbladder. Once the gallbladder was removed, the epigastric trocar was replaced and we used a towel clip to occlude the skin so that re-insufflation could take place. We again inspected the gallbladder fossa. It was irrigated and suctioned repeatedly. Some additional cautery was used to make the gallbladder fossa hemostatic. Overall there really was not a lot of bleeding associated with the surgery. I then placed a 19 Upper Sor[place] Yves drain in the right upper quadrant in the subhepatic space. The drain was sutured to the skin with 2 0 silk. We looked a final time at the gallbladder fossa and areas of dissection. All looked good. We then evacuated CO2 and removed the trocar sleeves. The fascia at the epigastric trocar site was closed with 0 Vicryl suture. All skin wounds were closed with subcuticular 4 O Monocryl skin suture. The wounds were dressed with Exofin surgical adhesive. The drain was placed to bulb suction. The patient was awakened and taken to recovery in good condition. Estimated blood loss was 20 cc. Sponge and needle counts were correct x2. Anesthesia: GETA and local (0.5% Marcaine with epinephrine) Surgeon: Sumit Ashraf MD Estimated blood loss (mL): 20 Drains: Yes (MALACHI drain right upper quadrant) Packing: No Pathology: yes (Gallbladder) Complications: None Condition: stable Disposition: PACU Findings: Gangrenous acute cholecystitis with hydrops. Stones noted. Severe inflammation. No biliary ductal dilatation or liver abnormalities appreciated.
[2020-10-20] MEDS: fentaNYL CITRATE INJ (*CRX) 100 MCG/2 ML VIAL 25 MCG IV PUSH ×3 (14:30→15:19)
[2020-10-20 14:43] LABS: Glucose Point of Care 194 (65-105)
--- NOTE | 2020-10-20 15:07 | SUR.PHASEI ---
7007 SBAR FAXED FLOOR NOTIFIED
--- NOTE | 2020-10-20 15:44 | PC.NURSE ---
Returned from OR per stretcher. Report received from Tim. Yves cross present to RLQ.
[2020-10-20] MEDS: MORPHINE SULFATE (*CRX) 4 MG/ML INJ IV PUSH (16:32)
[2020-10-20] MEDS: LACTATED RINGERS 1,000 ML 100 ML IV CONT (17:55)
[2020-10-20] MEDS: HYDROcodone/acetaminophen (*CRX) 10-325 MG TABLET 1 TAB PO (19:23)
[2020-10-20] MEDS: ENOXAPARIN 40 MG/0.4 ML SYRINGE SUB-Q (21:08)
[2020-10-20] MEDS: INSULIN GLARGINE (*BKC) 100 UNITS/ML 7 UNITS SUB-Q (21:09)
[2020-10-20 21:18] LABS: Glucose Point of Care 150 (65-105)
[2020-10-20 21:18] LABS: Glucose Point of Care 194 (65-105)
[2020-10-21] VITALS (8 sets, daily range): BP systolic 98–130; BP diastolic 53–66; PULSE 60–77; RESP 16–18; TEMP 36.2–37.6; O2SAT 92–95
[2020-10-21] MEDS: LACTATED RINGERS 1,000 ML 100 ML IV CONT (04:34)
--- NOTE | 2020-10-21 04:35 | PC.NURSE ---
PT REFUSES TO USE URINAL
[2020-10-21] MEDS: HYDROcodone/acetaminophen (*CRX) 10-325 MG TABLET 1 TAB PO (05:00)
[2020-10-21 05:32] LABS: Hematocrit 42.1 % (42.0-52.0); Hemoglobin 14.4 g/dL (14.0-18.0); Mean Corpuscular HGB Conc 34.2 g/dl (32-36); Mean Corpuscular Hemoglobin 31.8 pg (26-34); Mean Corpuscular Volume 92.9 fl (80-100); Mean Platelet Volume 9.7 fl (7.4-10.4); Platelet Count Result 228 k/mm3 (150-375); Red Blood Count 4.53 M/mm3 (4.6-6.20); Red Cell Distribution Width 12.7 % (11.5-14.5); White Blood Count 16.1 K/mm3 (4.5-10.0)
[2020-10-21 05:46] LABS: Alanine Aminotransferase 88 U/L (4-50); Albumin Level 3.5 g/dL (3.5-5.1); Alkaline Phosphatase 64 U/L (38-126); Anion Gap 6 mmol/L (8-16); Aspartate Amino Transferase 87 U/L (17-59); Bilirubin,Total 0.8 mg/dL (0.2-1.3); Blood Urea Nitrogen 12 mg/dL (9-20); Calcium 8.4 mg/dL (8.4-10.2); Carbon Dioxide 31 mmol/L (22-30); Chloride 102 mmol/L (98-107); Estimated CRCL calculation 76 ml/min; Estimated Glomerular Filt Rate > 60; Glucose 108 mg/dL (75-110); Potassium 3.3 mmol/L (3.4-5.0); Sodium 139 mmol/L (137-145)
[2020-10-21 07:30] LABS: Glucose Point of Care 114 (65-105)
--- NOTE | 2020-10-21 08:15 | WPDANESPN ---
Anes - Prog Note Post-Op Date/Time: 10/21/20 08:15 Cardiovascular status: normal Respiratory status: normal Airway patency: baseline Mental status: baseline Post-Op hydration status: normal Vital Signs: Last Vital Signs Temp 36.7 C 10/21/20 05:00 Pulse 68 10/21/20 05:00 Resp 16 10/21/20 05:00 BP 130/63 10/21/20 05:00 Pulse Ox 94 10/21/20 05:00 Pain Score (VAS): 2 I/O: Intake & Output 10/20/20 10/21/20 10/21/20 23:59 07:59 15:59 Intake Total 100 1400 Output Total 30 28 Balance 70 1372 Laboratory Tests 10/21/20 05:20 10/21/20 05:20 10/20/20 10/20/20 10/20/20 11:44 14:41 18:14 WBC RBC Hgb Hct MCV MCH MCHC RDW Plt Count MPV Sodium Potassium Chloride Carbon Dioxide Anion Gap BUN Creatinine Estim Creat Clear Calc Estimated GFR Glucose POC Capillary Glucose 183 H 194 H 194 H Calcium Total Bilirubin AST ALT Alkaline Phosphatase Total Protein Albumin 10/20/20 10/21/20 10/21/20 20:46 05:20 05:20 WBC 16.1 H RBC 4.53 L Hgb 14.4 Hct 42.1 MCV 92.9 MCH 31.8 MCHC 34.2 RDW 12.7 Plt Count 228 MPV 9.7 Sodium 139 Potassium 3.3 L Chloride 102 Carbon Dioxide 31 H Anion Gap 6 L BUN 12 Creatinine 0.90 Estim Creat Clear Calc 76 Estimated GFR > 60 Glucose 108 POC Capillary Glucose 150 H Calcium 8.4 Total Bilirubin 0.8 AST 87 H ALT 88 H Alkaline Phosphatase 64 Total Protein 6.0 L Albumin 3.5 10/21/20 07:17 WBC RBC Hgb Hct MCV MCH MCHC RDW Plt Count MPV Sodium Potassium Chloride Carbon Dioxide Anion Gap BUN Creatinine Estim Creat Clear Calc Estimated GFR Glucose POC Capillary Glucose 114 H Calcium Total Bilirubin AST ALT Alkaline Phosphatase Total Protein Albumin Post-procedural complaints: none Patient Feedback: Patient satisfied with anesthetic care.
[2020-10-21] MEDS: METOPROLOL TARTRATE 25 MG TABLET PO ×2 (08:48→21:12)
[2020-10-21] MEDS: ROSUVASTATIN 10 MG TABLET 40 MG PO (08:48)
[2020-10-21] MEDS: lisinopriL 5 MG TABLET PO (08:48)
--- NOTE | 2020-10-21 09:14 | PM.PNGS ---
Progress Note: A&P Assessment and Plan (1) Cholelithiasis and acute cholecystitis with obstruction: Code(s): K80.01 - Calculus of gallbladder with acute cholecystitis with obstruction Status: Acute Assessment and Plan: Doing well postop day 1. Advanced to solid food. Up walking more today. Continue IV antibiotics and probably discharge tomorrow on oral antibiotics. (2) Uncontrolled diabetes mellitus: Qualifiers: Diabetes mellitus type: type 2 Glycemic state: with hyperglycemia Qualified Code(s): E11.65 - Type 2 diabetes mellitus with hyperglycemia Code(s): E11.65 - Type 2 diabetes mellitus with hyperglycemia Status: Chronic (3) Essential hypertension: Code(s): I10 - Essential (primary) hypertension Status: Chronic (4) CAD (coronary artery disease): Code(s): I25.10 - Atherosclerotic heart disease of [place] coronary artery without angina pectoris Status: Chronic Subjective Subjective Date/Time Seen: 10/21/20 09:14 Post Op day: 1 Patient reports: no new complaints, feels better, tolerating liquids well and no bowel movement Review of Systems Review of Systems: All systems reviewed & are unremarkable except as noted in HPI and below Constitutional: Constitutional: Denies headache(s) Cardiovascular: Cardiovascular: Denies chest pain and Denies dyspnea Respiratory: Respiratory: Denies cough and Denies dyspnea Gastrointestinal: Gastrointestinal: Reports as per HPI Neurologic: Denies confusion and Denies headache(s) Exam Const: General: comfortable and no acute distress; No confusion Orientation/consciousness: patient oriented x3 and No confusion GI: Inspection: non-distended and incision (All incisions healing well, MALACHI drain serosanguineous) GI Palp: Yes Soft to palpation, Yes Tenderness to palpation present (GI) (Mild appropriate tenderness), No Guarding due to palpation present (GI) and No Rebound tenderness present Auscultation: normal bowel sounds Neuro: General: patient oriented x3, no focal motor deficits and No confusion Extrem: General: no calf tenderness and no edema Psych: Affect: normal affect Insight: Good insight present (Psych) Judgement: Good judgement present (Psych) Objective Data Vital Signs Vital Signs: Vital Signs - 24 hr 10/20/20 12:52 10/20/20 14:25 10/20/20 14:40 Temperature 37.2 C 36.8 C Pulse Rate 66 58 L 56 L Respiratory Rate 16 20 18 Blood Pressure 116/64 127/67 115/63 Pulse Oximetry 96 99 92 10/20/20 14:55 10/20/20 15:10 10/20/20 15:25 Temperature 36.3 C L Pulse Rate 61 54 L 68 Respiratory Rate 16 17 18 Blood Pressure 139/68 143/72 H 152/72 H Pulse Oximetry 92 92 99 10/20/20 15:40 10/20/20 15:55 10/20/20 21:07 Temperature 36.5 C 36.6 C 36.3 C L Pulse Rate 60 62 63 Respiratory Rate 14 16 16 Blood Pressure 153/65 H 153/65 H 139/71 Pulse Oximetry 94 95 97 10/20/20 21:09 10/21/20 01:00 10/21/20 05:00 Temperature 36.3 C L 36.7 C Pulse Rate 64 60 68 Respiratory Rate 16 16 Blood Pressure 109/63 130/63 Pulse Oximetry 95 94 10/21/20 08:48 Temperature Pulse Rate 68 Respiratory Rate Blood Pressure Pulse Oximetry Intake/Output Intake/Output: Intake & Output 10/18/20 10/19/20 10/20/20 10/21/20 23:59 23:59 23:59 23:59 Intake Total 3250 1279 1400 Output Total 40 28 Balance 3250 1239 1372 Meds/Results Medications: Active Medications Generic Name Dose Route Start Last Admin Trade Name Freq PRN Reason Stop Dose Admin Acetaminophen 500 mg 10/20/20 15:35 Acetaminophen 500 Mg Tablet PO Q6H PRN Mild Pain (1-3) or Fever Hydrocodone Bitart/Acetaminophen 1 tab 10/20/20 15:35 Hydrocodone/Acetaminophen (*Crx) 5-325 Mg Tablet PO Q4H PRN Pain Rated 4-6 Hydrocodone Bitart/Acetaminophen 1 tab 10/20/20 15:35 10/21/20 05:00 Hydrocodone/Acetaminophen (*Crx) 10-325 Mg Tablet PO 1 tab Q6H PRN Administration Pain Rated 7-10
[2020-10-21 11:47] LABS: Glucose Point of Care 147 (65-105)
[2020-10-21] MEDS: ASPIRIN 81 MG CHEWABLE TABLET PO (11:53)
--- NOTE | 2020-10-21 15:29 | PM.IMPN ---
Progress Note: A&P Assessment and Plan (1) Cholelithiasis and acute cholecystitis with obstruction: Code(s): K80.01 - Calculus of gallbladder with acute cholecystitis with obstruction Status: Acute Assessment and Plan: He presented with severe RUQ pain and CT abd/pelvis findings consistent with acute cholecystitis. Abdominal US demonstrated edematous gallbladder with wall thickening measuring up to 8-9 mm and large shadowing gallstone at the neck of the gallbladder with sludge. Lipase normal and LFTs normal on admission. He is afebrile. Leukocytosis slowly improving. He is now s/p laparoscopic cholecystectomy. Surgical findings of gangrenous cholecystitis with hydrops noted. Drain in place with serosanguineous output. Pain is well controlled at this time. General surgery is following and input is appreciated. Continue IV Zosyn (initiated 10/18) Supportive care with analgesics and antiemetics as needed Low-fat diet IV fluids discontinued as patient is tolerating oral intake. 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 He is asymptomatic. Aspirin has been resumed postoperatively Continue metoprolol, lisinopril and rosuvastatin (3) Uncontrolled diabetes mellitus: Qualifiers: Diabetes mellitus type: type 2 Glycemic state: with hyperglycemia Qualified Code(s): E11.65 - Type 2 diabetes mellitus with hyperglycemia Code(s): E11.65 - Type 2 diabetes mellitus with hyperglycemia Status: Chronic Assessment and Plan: Hemoglobin A1c 9.9 10/19/20. Patient is not compliant with medication and perhaps with diet. He was supposed to be taking metformin but he is not taking this. Last blood sugar 108. Low-dose basal lantus initiated while inpatient Continue ACHS glucose monitoring, sliding scale insulin, and hypoglycemia protocol He needs to resume metformin at discharge and follow-up with his PCP Education provided regarding risks of uncontrolled diabetes (4) Essential hypertension: Code(s): I10 - Essential (primary) hypertension Status: Chronic Assessment and Plan: Blood pressureelevated initially, likely due to pain. Last BP 130/63 Continue metoprolol and lisinopril Monitor BP and adjust treatment as necessary (5) Corns and callus: Code(s): L84 - Corns and callosities Status: Acute Assessment and Plan: He has painful corn on right heel and bilateral calluses. He was seen by agricultural chemist Dr. Jones who felt this was a papillomatous lesion and he will follow him as an outpatient for treatment. Refer to podiatry upon discharge May benefit from post-op shoe prior to discharge for comfort. Subjective Date/time seen: 10/21/20 15:29 Interval history: Date of service: 10/21/2020 Francisco Apodaca is a 55 y.o. male with PMH significant for hypertension, CAD, hyperlipidemia, and uncontrolled diabetes mellitus due to non-compliance with recommended regimen who is seen in follow-up for acute cholecystitis now s/p laparoscopic cholecystectomy on 10/20/2020. He is feeling well today. His pain is well controlled at this time. He does have some pain in the right upper quadrant at the site of the drain, only when pressure is applied. He has been able to tolerate a low-fat diet. Denies nausea or vomiting. He had a bowel movement today. No fevers, chills, dizziness, lightheadedness. Denies urinary symptoms. No shortness of breath or chest pain. He has no additional concerns at this time. Review of Systems Review of Systems: All systems review
[2020-10-21 16:49] LABS: Glucose Point of Care 141 (65-105)
[2020-10-21 20:32] LABS: Glucose Point of Care 196 (65-105)
[2020-10-21] MEDS: HYDROcodone/acetaminophen (*CRX) 5-325 MG TABLET 1 TAB PO (21:11)
[2020-10-21] MEDS: INSULIN GLARGINE (*BKC) 100 UNITS/ML 7 UNITS SUB-Q (21:12)
[2020-10-21] MEDS: ENOXAPARIN 40 MG/0.4 ML SYRINGE SUB-Q (21:12)
[2020-10-22 01:40] VITALS: BP 110/60; PULSE 65; RESP 16; TEMP 36.6; O2SAT 94
[2020-10-22] MEDS: HYDROcodone/acetaminophen (*CRX) 5-325 MG TABLET 1 TAB PO (04:24)
[2020-10-22 04:51] VITALS: BP 121/62; PULSE 66; RESP 18; TEMP 36.4; O2SAT 94
[2020-10-22 05:55] LABS: Anion Gap 5 mmol/L (8-16); Blood Urea Nitrogen 11 mg/dL (9-20); Calcium 8.6 mg/dL (8.4-10.2); Carbon Dioxide 31 mmol/L (22-30); Chloride 101 mmol/L (98-107); Estimated CRCL calculation 76 ml/min; Estimated Glomerular Filt Rate > 60; Glucose 122 mg/dL (75-110); Sodium 137 mmol/L (137-145)
[2020-10-22 05:56] LABS: Hematocrit 40.1 % (42.0-52.0); Hemoglobin 13.7 g/dL (14.0-18.0); Mean Corpuscular HGB Conc 34.2 g/dl (32-36); Mean Corpuscular Hemoglobin 31.8 pg (26-34); Mean Platelet Volume 10.2 fl (7.4-10.4); Platelet Count Result 234 k/mm3 (150-375); Red Blood Count 4.31 M/mm3 (4.6-6.20); Red Cell Distribution Width 12.4 % (11.5-14.5); White Blood Count 12.8 K/mm3 (4.5-10.0)
[2020-10-22 06:16] LABS: Glucose Point of Care 125 (65-105)
--- NOTE | 2020-10-22 07:57 | PM.PNGS ---
Progress Note: A&P Assessment and Plan (1) Cholelithiasis and acute cholecystitis with obstruction: Code(s): K80.01 - Calculus of gallbladder with acute cholecystitis with obstruction Status: Acute Assessment and Plan: doing well postop day 2. Will DC MALACHI drain and patient can be discharged from my perspective on Augmentin for another 5 days. He needs to stay on low-fat diet. Follow up with me in 2 weeks. Instructions given. (2) Uncontrolled diabetes mellitus: Qualifiers: Diabetes mellitus type: type 2 Glycemic state: with hyperglycemia Qualified Code(s): E11.65 - Type 2 diabetes mellitus with hyperglycemia Code(s): E11.65 - Type 2 diabetes mellitus with hyperglycemia Status: Chronic (3) Essential hypertension: Code(s): I10 - Essential (primary) hypertension Status: Chronic Subjective Subjective Date/Time Seen: 10/22/20 07:57 Post Op day: 2 Patient reports: no new complaints, feels better, tolerating a regular diet and afebrile Exam GI: Inspection: incision ( Incisions healing well, MALACHI drain serosanguineous output) GI Palp: Yes Soft to palpation and Yes Tenderness to palpation present (GI) ( mild appropriate tenderness mostly around MALACHI drain) Auscultation: normal bowel sounds and normoactive bowel sounds Objective Data Vital Signs Vital Signs: Vital Signs - 24 hr 10/21/20 08:48 10/21/20 10:50 10/21/20 14:00 Temperature 36.2 C L 36.8 C Pulse Rate 68 65 70 Respiratory Rate 18 18 Blood Pressure 122/66 98/53 L Pulse Oximetry 95 94 10/21/20 17:50 10/21/20 20:30 10/21/20 21:12 Temperature 37.6 C H 36.7 C Pulse Rate 77 70 70 Respiratory Rate 16 16 Blood Pressure 118/60 117/61 Pulse Oximetry 93 92 10/22/20 01:40 10/22/20 04:51 Temperature 36.6 C 36.4 C Pulse Rate 65 66 Respiratory Rate 16 18 Blood Pressure 110/60 121/62 Pulse Oximetry 94 94 Intake/Output Intake/Output: Intake & Output 10/19/20 10/20/20 10/21/20 10/22/20 23:59 23:59 23:59 23:59 Intake Total 3250 1279 3931 200 Output Total 40 86 36 Balance 3250 1239 3845 164 Meds/Results Medications: Active Medications Generic Name Dose Route Start Last Admin Trade Name Freq PRN Reason Stop Dose Admin Acetaminophen 500 mg 10/20/20 15:35 Acetaminophen 500 Mg Tablet PO Q6H PRN Mild Pain (1-3) or Fever Hydrocodone Bitart/Acetaminophen 1 tab 10/20/20 15:35 10/22/20 04:24 Hydrocodone/Acetaminophen (*Crx) 5-325 Mg Tablet PO 1 tab Q4H PRN Administration Pain Rated 4-6 Hydrocodone Bitart/Acetaminophen 1 tab 10/20/20 15:35 10/21/20 05:00 Hydrocodone/Acetaminophen (*Crx) 10-325 Mg Tablet PO 1 tab Q6H PRN Administration Pain Rated 7-10 Aspirin 81 mg 10/21/20 09:00 10/21/20 11:53 Aspirin 81 Mg Chewable Tablet PO 81 mg DAILY ARCELIA Administration Dextrose 12.5 gm 10/18/20 17:08 Dextrose 50% 25 Gm/50 Ml Syringe IV PUSH PRN PRN Hypoglycemia Protocol Diphenhydramine HCl 25 mg 10/20/20 15:35 Diphenhydramine Hcl Inj 50 Mg/Ml Vial IV PUSH Q6H PRN Itching Enoxaparin Sodium 40 mg 10/19/20 21:00 10/21/20 21:12 Enoxaparin 40 Mg/0.4 Ml Syringe SUB-Q 40 mg HS ARCELIA Administration Glucagon 1 mg 10/18/20 17:08 Glucagon For Inj 1 Mg Vial IM PRN PRN Hypoglycemia Protocol Piperacillin/Tazobactam/Dextrose 3.375 gm in 50 mls @ 100 mls/hr 10/18/20 19:00 10/22/20 06:10 Zosyn 3.375 Gm/D5w 50ml Pm IVPB 100 mls/hr Q6HR ARCELIA Administration Dextrose 1,000 mls @ 100 mls/hr 10/18/20 17:08 Dextrose 5% 1,000 Ml IVPB PRN PRN Hypoglycemia Protocol Insulin Aspart 2 - 5 units 10/21/20 08:00 10/22/20 06:14 Insulin Aspart (*Bkc) 100 Units/Ml SUB-Q Not Given AC ARCELIA Protocol Insulin Glargine 7 units 10/18/20 21:00 10/21/20 21:12 Insulin Glargine (*Bkc) 100 Units/Ml SUB-Q 7 units HS ARCELIA Administration Lisinopril 5 mg 10/19/20 10
[2020-10-22 08:26] VITALS: PULSE 66
[2020-10-22] MEDS: lisinopriL 5 MG TABLET PO (08:26)
[2020-10-22] MEDS: ROSUVASTATIN 10 MG TABLET 40 MG PO (08:26)
[2020-10-22] MEDS: METOPROLOL TARTRATE 25 MG TABLET PO (08:26)
[2020-10-22] MEDS: ASPIRIN 81 MG CHEWABLE TABLET PO (08:26)
[2020-10-22] MEDS: POTASSIUM CHLORIDE 20 MEQ TABLET 40 MEQ PO (10:07)
[2020-10-22] MEDS: POTASSIUM CHLORIDE 10 MEQ TABLET PO (10:07)
[2020-10-22 10:36] VITALS: BP 108/60; PULSE 63; RESP 20; TEMP 36.4; O2SAT 96
--- NOTE | 2020-10-22 11:20 | PM.DS ---
DS: Admitting Diagnosis Admitting Diagnosis Admitting Diagnosis: Acute cholecystitis DS: Discharge Diagnosis Discharge Diagnosis (1) Cholelithiasis and acute cholecystitis with obstruction: Code(s): K80.01 - Calculus of gallbladder with acute cholecystitis with obstruction Status: Acute Assessment and Plan: He presented with severe RUQ pain and CT abd/pelvis findings consistent with acute cholecystitis. Abdominal US demonstrated edematous gallbladder with wall thickening measuring up to 8-9 mm and large shadowing gallstone at the neck of the gallbladder with sludge. Lipase normal and LFTs normal on admission. He is afebrile. He underwent laparoscopic cholecystectomy. Surgical findings of gangrenous cholecystitis with hydrops noted. He had a MALACHI drain place which was removed prior to discharge. He was treated with IV Zosyn. Leukocytosis slowly improved. He will continue with p.o. Augmentin for additional 5 days following discharge. Pain was well controlled. He was able to tolerate a low-fat diet, which he will continue. General surgery follow-up in 2 weeks. 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 He remained asymptomatic. Continue aspirin, metoprolol, lisinopril, and rosuvastatin. (3) Uncontrolled diabetes mellitus: Qualifiers: Diabetes mellitus type: type 2 Glycemic state: with hyperglycemia Qualified Code(s): E11.65 - Type 2 diabetes mellitus with hyperglycemia Code(s): E11.65 - Type 2 diabetes mellitus with hyperglycemia Status: Chronic Assessment and Plan: Hemoglobin A1c 9.9 10/19/20. Patient is not compliant with medication and perhaps with diet. He was supposed to be taking metformin but stopped taking this due to GI upset. Low-dose basal Lantus initiated while inpatient as well as sliding scale insulin. His blood sugars were well controlled. I discussed with him resuming an oral hypoglycemic upon discharge. He did not wish to restart metformin. I started him on glipizide as this was affordable based on his insurance. I did educate him on the risks of possible hypoglycemia while taking this medication. He will monitor his blood sugars at home with meals and at nighttime. I encouraged him to record his blood sugars and follow-up with his PCP for further adjustment. (4) Essential hypertension: Code(s): I10 - Essential (primary) hypertension Status: Chronic Assessment and Plan: Blood pressure elevated initially, likely due to pain. This improved and BP remained stable on his home regimen of metoprolol and lisinopril. (5) Corns and callus: Code(s): L84 - Corns and callosities Status: Acute Assessment and Plan: He has painful corn on right heel and bilateral calluses. He was seen by funeral limousine driver Dr. Jones who felt this was a papillomatous lesion and he will follow him as an outpatient for treatment. Podiatry referral was made. DS: Summary Hospital Course Reason for hospitalization: Acute cholecystitis Hospital Course: Date of admission: 10/18/2020 Date of discharge: 10/22/2020 Francisco Apodaca is a 55 y.o. male with PMH significant for hypertension, CAD, hyperlipidemia, and uncontrolled diabetes mellitus due to non-compliance with recommended regimen who presented to the emergency department on 10/18/2020 with complaints of intermittent, severe right upper quadrant pain ongoing for 1 day. Upon presentation to the emergency department, his vital signs were stable, he had marked leukocytosis of 17.7, additional CBC and BMP unremarkable, lipase 69, CT abdomen/pelvis demonstrated acute cholecystitis, also noted on abdomi
== END 2020-10-22 11:46 | disposition home or self-care (01) | DRG 418 ==
LOC: ANHED 12:25 → ANH2MED 14:09
PROVIDERS: Physician Assistant; Surgery; Admitting Provider Internal Medicine; Emergency Provider Emergency Medicine; PCP Family Medicine; Visit Provider Physician Assistant
PROC: 0FT44ZZ Resection of Gallbladder, Percutaneous Endoscopic Approach (ICD-10-PCS; CPT 47562; principal; 2020-10-20 13:30)
DX: K80.01 Calculus of gallbladder with acute cholecystitis with obstruction (principal); K82.1 Hydrops of gallbladder; K82.A1 Gangrene of gallbladder in cholecystitis; L84 Corns and callosities; B07.0 Plantar wart; I25.10 Atherosclerotic heart disease of native coronary artery without angina pectoris; E11.65 Type 2 diabetes mellitus with hyperglycemia; I10 Essential (primary) hypertension; E78.5 Hyperlipidemia, unspecified; F17.210 Nicotine dependence, cigarettes, uncomplicated; Z79.82 Long term (current) use of aspirin; Z79.899 Other long term (current) drug therapy; Z91.19 Patient's noncompliance with other medical treatment and regimen; Z95.5 Presence of coronary angioplasty implant and graft
CPT/HCPCS: 36415; 74177; 76705; 80048; 80053; 82948; 83036; 83690; 83735; 84484; 85025; 85027; 86850; 86900; 86901; 88304; 93005; 96374; 96375; 99285; A9270; C1713; J1650; J1815; J2250; J2270; J2370; J2405; J2543; J2704; J2710; J3010; J7120; Q9967

== ENCOUNTER 2020-11-12 11:01 | Outpatient (CLI) | payer BC, SELFPAY | END 2020-11-12 11:02 | disposition home or self-care (01) | LOC: ANHCOVIDVC 11:01 | PROVIDERS: PCP Family Medicine | DX: Z23 Encounter for immunization (principal) | CPT/HCPCS: 0001A; 91300 ==

== ENCOUNTER 2020-12-03 10:55 | Outpatient (CLI) | payer BC, SELFPAY | END 2020-12-03 10:56 | disposition home or self-care (01) | LOC: ANHCOVIDVC 10:55 | PROVIDERS: PCP Family Medicine | DX: Z23 Encounter for immunization (principal) | CPT/HCPCS: 0002A; 91300 ==